=== PATIENT | female | born 1980 | race Caucasian/White ===

== ENCOUNTER 2016-11-27 06:03 | Inpatient (IN) | payer BC, OTHER ==
[2016-11-27] MEDS ORDERED: cefOXitin IV 2 gm in Dextrose 2 GM/50 ML BAG IVPB ONE ×2 (06:23→08:05)
[2016-11-27] MEDS ORDERED: Sodium Citrate/Citric Acid 15 ml Sol PO ONE (06:23)
[2016-11-27 06:25] VITALS: BMI 28.7
--- NOTE | 2016-11-27 06:29 | OBHP ---
Datetime: 11/27/2016 06:25 IP Adm Impression: Term, intrauterine IP Admit Plan: Admit to unit; Initiate Section protocol Admit Comment, IP Provider: at 39weeks came with c/o pelvic pressure and abdominal pain started last night, no vb, lof,+fm. pt has a h/o previous section obhx 1 x , 1 x c/s soch de pmh de med pnv all nkda a/p at 39weeks with abdominal pain/previous section admit to l_dnpo/ivf labs pain karsten cont sara and efm skin abxs anthesia aware dr brand in formed consent taken Pelvic Type - PN: Adequate Extremities - PN: Normal Abdomen - PN: Normal Back - PN: Normal Breast - PN: Normal Lungs - PN: Normal Heart - PN: Normal Thyroid - PN: Normal Neurologic - PN: Normal HEENT - PN: Normal General - PN: Normal FHR - Baseline A Provider: 130 Contraction Comments Provider: irrg Comments, ACOG Physical Exam: gravid,non tender ext no edema,no calf ten IP Hx Assessment: The History has been Reviewed and is Current Vital Signs Provider: Reviewed; Within Normal Limits IP Chief Complaint: Uterine contractions NICHD Variability Prov Fetus A: Moderate 6-25bpm Dilatation, Provider: 2 Effacement, Provider: 60 Station, Provider: -2 Genitourinary Exam: Normal DTRs - PN: Normal
[2016-11-27] MEDS ORDERED: Lactated Ringer's 1,000 ML IV SCH (06:30)
--- NOTE | 2016-11-27 06:32 | OBADHP ---
Datetime: 11/27/2016 06:25 Admit Comment, IP Provider: at 39weeks came with c/o pelvic pressure and abdominal pain started last night, no vb, lof,+fm. pt has a h/o previous section obhx 1 x , 1 x c/s soch de pmh de med pnv all nkda a/p at 39weeks with abdominal pain/previous section admit to l_dnpo/ivf labs pain karsten cont sara and efm skin abxs anthesia aware dr brand in formed consent taken Pelvic Type - PN: Adequate Extremities - PN: Normal Abdomen - PN: Normal Back - PN: Normal Breast - PN: Normal Lungs - PN: Normal Heart - PN: Normal Thyroid - PN: Normal Neurologic - PN: Normal HEENT - PN: Normal General - PN: Normal FHR - Baseline A Provider: 130 Contraction Comments Provider: irrg Comments, ACOG Physical Exam: gravid,non tender ext no edema,no calf ten IP Hx Assessment: The History has been Reviewed and is Current Vital Signs Provider: Reviewed; Within Normal Limits IP Chief Complaint: Uterine contractions NICHD Variability Prov Fetus A: Moderate 6-25bpm Dilatation, Provider: 2 Effacement, Provider: 60 Station, Provider: -2 Genitourinary Exam: Normal DTRs - PN: Normal IP Adm Impression: Term, intrauterine IP Admit Plan: Admit to unit; Initiate Section protocol
[2016-11-27 06:58] LABS: BASO # 0.1 K/uL (0.0-0.2); BASO % 0.6 % (0.0-2.0); EOS # 0.1 K/uL (0.0-0.7); EOS % 1.4 % (0.0-4.0); HEMATOCRIT 38.4 % (34.0-47.0); LYMPH # 2.5 K/uL (1.0-4.3); LYMPH % 25.5 % (20.0-40.0); MEAN CELL VOLUME 85.1 fL (81.0-99.0); MEAN CORPUSCULAR HEMOGLOBIN 28.4 pg (27.0-31.0); MEAN CORPUSCULAR HGB CONC 33.3 g/dL (33.0-37.0); MEAN PLATELET VOLUME 8.3 fL (7.2-11.7); MONO # 0.6 K/uL (0.0-0.8); MONO % 6.2 % (0.0-10.0); RED CELL DISTRIBUTION WIDTH 20.7 % (11.5-14.5); WHITE BLOOD COUNT 9.8 K/uL (4.8-10.8)
[2016-11-27 07:09] LABS: BLOOD UREA NITROGEN 6 mg/dL (7-17); CALCIUM 8.8 mg/dl (8.6-10.4); CARBON DIOXIDE 20 mmol/L (22-30); CHLORIDE 106 mmol/L (98-107); GFR AFRICAN-AMERICAN > 60; GLUCOSE,RANDOM 66 mg/dL (65-105); POTASSIUM 3.7 mmol/L (3.6-5.2); SODIUM 135 mmol/L (132-148)
[2016-11-27 07:22] LABS: RBC URINE 1 /hpf (0-3); URINE BACTERIA RARE (<OCC); URINE BILIRUBIN NEGATIVE (NEGATIVE); URINE BLOOD NEGATIVE (NEGATIVE); URINE COLOR Yellow (YELLOW); URINE GLUCOSE (UA) NORMAL (Normal); URINE KETONE NEGATIVE (NEGATIVE); URINE LEUKOCYTE ESTERASE TRACE Leu/uL (Negative); URINE PROTEIN NEGATIVE (NEGATIVE); URINE UROBILINOGEN NORMAL mg/dL (0.2-1.0); WBC URINE 2 /hpf (0-5)
[2016-11-27] MEDS ORDERED: Sodium Citrate/Citric Acid 15 ml Sol ONE (08:05)
[2016-11-27] MEDS ORDERED: Oxytocin 10 Units/ml Inj ONE (08:21)
[2016-11-27] MEDS ORDERED: Morphine 1 mg/ml preservative-free Inj(Duramorph) ONE (08:34)
[2016-11-27] MEDS ORDERED: Oxycodone/Acetaminophen 5/325 mg Tab PO PRN (08:40)
[2016-11-27] MEDS ORDERED: Midazolam 2 MG/2 ML VIAL ONE (09:35)
[2016-11-27] MEDS ORDERED: ePHEDrine 50 mg/ml Inj ONE (09:35)
[2016-11-27] MEDS ORDERED: DiphenhydrAMINE 50 mg/ml Inj IVP PRN (10:20)
[2016-11-27] MEDS ORDERED: HYDROmorphone 0.5 mg/0.5 ml ISec IVP PRN (10:21)
[2016-11-27] MEDS: Simethicone 80 mg Chewtab PO SCH ×2 (14:02→23:27)
[2016-11-27] MEDS: ceFAZolin IV 1 gm in Dextrose 1 GM/50 ML BAG IVPB SCH ×2 (15:49→23:33)
[2016-11-27 15:55] LABS: RAPID PLASMA REAGIN NONREACTIVE (NONREACTIVE)
[2016-11-28 07:38] LABS: HEMATOCRIT 35.5 % (34.0-47.0); MEAN CELL VOLUME 85.6 fL (81.0-99.0); MEAN CORPUSCULAR HGB CONC 32.7 g/dL (33.0-37.0); MEAN PLATELET VOLUME 7.8 fL (7.2-11.7); RED CELL DISTRIBUTION WIDTH 20.5 % (11.5-14.5); WHITE BLOOD COUNT 11.8 K/uL (4.8-10.8)
[2016-11-28] MEDS: ceFAZolin IV 1 gm in Dextrose 1 GM/50 ML BAG IVPB SCH (07:40)
[2016-11-28] MEDS: Oxycodone/Acetaminophen 5/325 mg Tab PO PRN ×2 (07:48→14:34)
[2016-11-28 08:19] LABS: CHLORIDE 103 mmol/L (98-107); POTASSIUM 3.8 mmol/L (3.6-5.2); SODIUM 132 mmol/L (132-148)
[2016-11-28 08:22] LABS: BLOOD UREA NITROGEN 6 mg/dL (7-17); CARBON DIOXIDE 23 mmol/L (22-30); GFR AFRICAN-AMERICAN > 60; GLUCOSE,RANDOM 65 mg/dL (65-105)
[2016-11-28 08:23] LABS: CALCIUM 8.5 mg/dl (8.6-10.4)
[2016-11-28] MEDS ORDERED: Bisacodyl 5mg EC Tab PO ONE (08:40)
[2016-11-28] MEDS: Simethicone 80 mg Chewtab PO SCH ×5 (09:46→23:13)
--- NOTE | 2016-11-28 11:27 | OBPPN ---
Datetime: 11/28/2016 11:23 PP Pain Prov: Within normal limits PP Nausea Prov: Denies PP Flatus Prov: Yes PP BM Prov: No PP Breasts Prov: Normal PP Heart Prov: Normal PP Lungs Prov: Normal PP Abdomen/Uterus Prov: Normal PP Lochia Prov: Normal PP Vulva/Perineum Prov: Normal PP CVA Tenderness Prov: Normal PP Extremities Prov: Normal PP C/S Incision Prov: Normal PP Progress Prov: Normal PP Comments Phys Exam Prov: GEN NAD AANo x 3 REP: CTAB/l CVS: RRR, +S1/S2 BREAST Non tender, non enrogrbe b/l ABD: soft, NT/ND, +BS, no guaridng, no reboudn tendneres,s no rigidy INCSIN C/D/I healing well V:E miniml lochai non foul slemming EX:T no calf tendnress b/l, negative homans sign PP Impression Prov: Normal progression PP Plan Prov: Continue present management PP Progress Note Prov: pt seen and examiend and reports pian is controlled with medicatoin. pt is am bauting out of bed, voiding, passing flatus, bresat feeding, denies any lighthtenadd, dizzyness, CP, SOB. VSS PE see above GEN NAD AANo x 3 REP: CTAB/l CVS: RRR, +S1/S2 BREAST Non tender, non enrogrbe b/l ABD: soft, NT/ND, +BS, no guaridng, no reboudn tendneres,s no rigidy INCSIN C/D/I healing well V:E miniml lochai non foul slemming EX:T no calf tendnress b/l, negative homans sign A/P s/p RLTCS POD #1 doing well 1. Pain manaagment 2. d/c hauser 3. Activity: encourage ambuation of of bed with adssistance then prn 4. Diet: Advance as tolerated 5. Am labs 6. Encourage breat feedign and incentive spirometner 7. continue current manamgnet IP PP Procedures: None Vital Signs Provider PP: Reviewed; Within Normal Limits
--- NOTE | 2016-11-28 13:08 | PCM.SURG1 ---
Surgeon's Initial Post Op Note - Surgeon's Notes Surgeon: Emma Ruvalcaba MD Tractor Engine Assembler: Dr Rocha Type of Anesthesia: Spinal Pre-Operative Diagnosis: Previous cesearean esction, contractin, in labor Operative Findings: live male , apgars 9, 10 weight of 7lbs 5 ounces, ebl [address] Rocha was surgical instruments inspector and was present for entire case and essential in gaining , retraction, exposure, holding bladder blade, deliverying infant, obtaining hemostasis, closing all layers and was present for entrie case Post-Operative Diagnosis: same as above Operation Performed: Repeat low transverse cesearean section Specimen/Specimens Removed: placenta Estimated Blood Loss: EBL {In ML}: 800 Blood Products Given: N/A Drains Used: No Drains Post-Op Condition: Good Date of Surgery/Procedure: 11/27/16 Time of Surgery/Procedure: 08:00
--- NOTE | 2016-11-28 13:09 | OBDS ---
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 Babies in Womb: 1 Attempted: No Labor Anesthesia: Intrathecal LABOR INFORMATION Reason for Induction: Not Applicable Group B Beta Strep: Positive Group B Beta Strep: Negative Steroids Given: None Reason Steroids Not Administered: Not Applicable MEMBRANES Membranes Rupture Method: Artificial Rupture of Membranes: 11/27/2016 09:08 Length of Rupture (hrs): -0.02 Amniotic Fluid Color: Clear Amniotic Fluid Amount: Moderate Amniotic Fluid Odor: Normal STAGES OF LABOR Stage 3 hrs: 0 Stage 3 min: 1 CSECTION DELIVERY Primary Indication: Repeat Elective Secondary Indication: Repeat Elective CSection Urgency: Elective CSection Incidence: Repeat Labor: N/A Elective: Elective BABY A INFORMATION Infant Delivery Date/Time: 11/27/2016 09:07 Method of Delivery: Born in Route : No : N/A Forceps: N/A Vacuum Extraction: N/A Shoulder Dystocia : No SHOULDER DYSTOCIA BABY A Delivery Date/Time: 11/27/2016 09:07 PRESENTATION/POSITION BABY A Presentation: Cephalic Cephalic Presentation: Vertex Vertex Position: Right Occipital Anterior Breech Presentation: N/A PLACENTA INFORMATION BABY A Placenta Delivery Time : 11/27/2016 09:08 Placenta Method of Delivery: Manual Removal Placenta Status: Delivered SCORES BABY A Heart Rate 1 min: >100 bpm Resp Effort 1 min: Good Cry Reflex Irritability 1 min: Cough or Sneeze or Pulls Away Muscle Tone 1 min: Active Motion Color 1 min: Body [place], Extremities Blue SCORE 1 MIN: 9 Heart Rate 5 min: >100 bpm Resp Effort 5 min: Good Cry Reflex Irritability 5 min: Cough or Sneeze or Pulls Away Muscle Tone 5 min: Active Motion Color 5 min: Completely [place] SCORE 5 MIN: 10 INFANT INFORMATION BABY A Gestational Age at Delivery: 38.5 Gestational Status: Term Infant Outcome : Liveborn Infant Condition : Stable Sex: Male IDENTIFICATION/MEDS BABY A ID Band Number: [id number] ID Band Location: Left Leg; Left Arm Sensor Applied: Yes Sensor Number: [id number] Sensor Location : Cord Clamp Vitamin K Given : Aquamephyton 1 mg IM; Left Thigh Erythromycin Given: Given Both Eyes WEIGHT/LENGTH BABY A Birthweight (gms): 3315 Weight (lb): 7 Weight (oz): 5 Length Inches: 20.00 Infant Length cms: 50.8 CORD INFORMATION BABY A No. Cord Vessels: 3 Nuchal Cord : N/A Nuchal Cord Other: n/a True Knot: n/a Cord pH Baby Arterial: n/a Infant Cord pH Baby Venous: 7.32 Cord Blood Taken: Yes Banking/Donate Info: n/a Suction: Mouth; Nose ASSESSMENT BABY A Complications: None Physical Findings at Delivery: Within Normal Limits Infant Respirations: Appears Normal Energy Sales Broker/ALS Called : No Infant Care By: dr anna and j luisrn Transferred To: Remains with Mother
--- NOTE | 2016-11-28 13:22 | OBDS ---
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 Babies in Womb: 1 Attempted: No Labor Anesthesia: Intrathecal LABOR INFORMATION Reason for Induction: Not Applicable Group B Beta Strep: Positive Steroids Given: None Reason Steroids Not Administered: Not Applicable MEMBRANES Membranes Rupture Method: Artificial Rupture of Membranes: 11/27/2016 09:08 Length of Rupture (hrs): -0.02 Amniotic Fluid Color: Clear Amniotic Fluid Amount: Moderate Amniotic Fluid Odor: Normal STAGES OF LABOR Stage 3 hrs: 0 Stage 3 min: 1 CSECTION DELIVERY Primary Indication: Repeat Elective Secondary Indication: Repeat Elective CSection Urgency: Elective CSection Incidence: Repeat Labor: N/A Elective: Elective BABY A INFORMATION Infant Delivery Date/Time: 11/27/2016 09:07 Method of Delivery: Born in Route : No : N/A Forceps: N/A Vacuum Extraction: N/A Shoulder Dystocia : No SHOULDER DYSTOCIA BABY A Delivery Date/Time: 11/27/2016 09:07 PRESENTATION/POSITION BABY A Presentation: Cephalic Cephalic Presentation: Vertex Vertex Position: Right Occipital Anterior Breech Presentation: N/A PLACENTA INFORMATION BABY A Placenta Delivery Time : 11/27/2016 09:08 Placenta Method of Delivery: Manual Removal Placenta Status: Delivered SCORES BABY A Heart Rate 1 min: >100 bpm Resp Effort 1 min: Good Cry Reflex Irritability 1 min: Cough or Sneeze or Pulls Away Muscle Tone 1 min: Active Motion Color 1 min: Body [place], Extremities Blue SCORE 1 MIN: 9 Heart Rate 5 min: >100 bpm Resp Effort 5 min: Good Cry Reflex Irritability 5 min: Cough or Sneeze or Pulls Away Muscle Tone 5 min: Active Motion Color 5 min: Completely [place] SCORE 5 MIN: 10 INFORMATION BABY A Gestational Age at Delivery: 38.5 Gestational Status: Term Infant Outcome : Liveborn Infant Condition : Stable Infant Sex: Male IDENTIFICATION/MEDS BABY A ID Band Number: [id number] ID Band Location: Left Leg; Left Arm Sensor Applied: Yes Sensor Number: [id number] Sensor Location : Cord Clamp Vitamin K Given : Aquamephyton 1 mg IM; Left Thigh Erythromycin Given: Given Both Eyes WEIGHT/LENGTH BABY A Birthweight (gms): 3315 Infant Weight (lb): 7 Infant Weight (oz): 5 Infant Length Inches: 20.00 Infant Length cms: 50.8 CORD INFORMATION BABY A No. Cord Vessels: 3 Nuchal Cord : N/A Nuchal Cord Other: n/a True Knot: n/a Infant Cord pH Baby Arterial: n/a Infant Cord pH Baby Venous: 7.32 Cord Blood Taken: Yes Banking/Donate Info: n/a Infant Suction: Mouth; Nose ASSESSMENT BABY A Infant Complications: None Physical Findings at Delivery: Within Normal Limits Respirations: Appears Normal Industrial Hygienist/ALS Called : No Infant Care By: dr anna and phyllis dietz Transferred To: Remains with Mother
--- NOTE | 2016-11-29 03:55 | OBPPN ---
Datetime: 11/29/2016 03:50 PP Pain Prov: Within normal limits PP Nausea Prov: Denies PP Flatus Prov: Yes PP BM Prov: Yes PP Breasts Prov: Normal PP Heart Prov: Normal PP Lungs Prov: Normal PP Abdomen/Uterus Prov: Normal PP Lochia Prov: Normal PP Vulva/Perineum Prov: Normal PP CVA Tenderness Prov: Normal PP Extremities Prov: Normal PP C/S Incision Prov: Normal PP Progress Prov: Normal PP Impression Prov: Normal progression PP Plan Prov: Continue present management PP Progress Note Prov: Pt seen and examined and reports pain over incsion controlled with medication . pt deies any fevers, chills, nause, vomiting, CP, SOB, dizzyness. pt with asympomatic tachycardia e arlier. pt reports ambulating, tolerating regular diet. VS see above PE see above A/P s/p RLTCS POD #2 doing well -pain managment -Asympomatic tachycardia: for ekg if elevated -Oxygen saturation -regular diet -continue abodminal binder, incentive spirometer IP PP Procedures: None Datetime: 11/28/2016 11:23 PP Comments Phys Exam Prov: GEN NAD AANo x 3 REP: CTAB/l CVS: RRR, +S1/S2 BREAST Non tender, non enrogrbe b/l ABD: soft, NT/ND, +BS, no guaridng, no reboudn tendneres,s no rigidy Fundus: Firm, clark elvel of umbiucs INCSIN C/D/I healing well V:E miniml lochai non foul slemming EX:T no calf tendnress b/l, negative homans sign
--- NOTE | 2016-11-29 04:40 | OP ---
PROCEDURE DATE: 11/28/2016 PREOPERATIVE DIAGNOSIS: Prior section, protracted labor. POSTOPERATIVE DIAGNOSIS: Prior section, protracted labor. OPERATIVE FINDINGS: Live male infant, Apgars 9 and 10, weight is 7 pounds and 5 ounces. OPERATION PERFORMED: Repeat low transverse section. SURGEON: Dr. Emma Ruvalcaba FINANCIAL INSTITUTION MANAGER: __Dr Wing Rocha__ TYPE OF ANESTHESIA: Spinal. ESTIMATED BLOOD LOSS: 800 mL BLOOD PRODUCTS: None. COMPLICATIONS: No complications. GARMENT FORM ASSEMBLER PRESENT FOR DELIVERY: Dr. Taylor___ was the surgical garment fitter present for entire case and essentially gaining entry, retraction, exposure, holding the bladder blade, obtaining hemostasis and delivering the baby, clsing all layers, and was present for the entire case. SPECIMEN: Placenta. DESCRIPTION OF PROCEDURE: The patient was taken to the operating room where she was given spinal anesthesia. Once it was adequate, she was placed on the operating table in dorsal supine position. The patient was then prepped and draped in usual sterile fashion. A time-out confirmed correct patient and correct procedure. The patient was given preoperative prophylactic antibiotic. Pfannenstiel skin incision was made through the existing previous incision, carried down to the underlying fascia with a Bovie . The fascia was incised in the midline and incision was extended laterally with the Bovie. The superior aspect of the fascial incision was grasped with Allis and Byron clamps and underlying rectus muscle resected off bluntly with the use of Rivera scissors. Attention was then turned to the inferior aspect in the incision in a similar fashion. It was grasped with Allis and Byron clamps and underlying rectus muscle resected off bluntly with the use of Rivera scissors. The rectus was also then bluntly in midline. The peritoneum was identified in the clear space. Incision along the line was spread until there was good visualization. The lower end of the [place] was then inserted, and the lower uterine segment was excised in a transverse fashion. The lower uterine segment incision was extended laterally and bluntly. Amniotic fluid membrane was then ruptured. Clear fluid noted. The surgeon's hand entered the uterine cavity and the infant's head was delivered atraumatically followed by delivery of shoulder and followed by delivery of the body. Both oral and nasal passages of the baby were bulb suctioned. The umbilical cord was clamped and cut and the baby was handed off the awaiting lead handler. The cord blood and cord gases were collected and sent x2. The placenta was then delivered manually. The uterus was exteriorized and cleared off all clots and debris, and the uterine incision was repaired with 0 Vicryl in a running continuous locking fashion. A second layer of the same suture was used to close the uterus in a running imbricating manner. There was normal tubes and ovaries. The uterus was then returned into the abdomen and the paracolic gutters were cleared off clots and debris. There was good hemostasis at the uterine incision site. The peritoneum was reapproximated with 2-0 chromic in a running continuous fashion. The rectus was reapproximated and closed with 2-0 chromic in an interrupted manner, and the fascia was reapproximated and closed with 0 Vicryl in running continuous fashion. Subcutaneous layers closed with 2-0 plain in interrupted manner. The skin was reapproximated and closed with 4-0 Monocryl in a running subcuticular fashion. At the end of the procedure, all needle, sponge, and instrument counts were noted as correct x2. The patient tolerated the procedure well, and was transferred to recovery room in stable condition. Emma Ruvalcaba MD MTDD
[2016-11-29 08:06] VITALS: O2SAT 99
[2016-11-29] MEDS: Simethicone 80 mg Chewtab PO SCH ×4 (09:22→22:50)
--- NOTE | 2016-11-30 07:44 | OBPPN ---
Datetime: 11/30/2016 07:39 PP Pain Prov: Within normal limits PP Nausea Prov: Denies PP Flatus Prov: Yes PP BM Prov: Yes PP Breasts Prov: Normal PP Heart Prov: Normal PP Lungs Prov: Normal PP Abdomen/Uterus Prov: Normal PP Lochia Prov: Normal PP Vulva/Perineum Prov: Normal PP CVA Tenderness Prov: Normal PP Extremities Prov: Normal PP C/S Incision Prov: Normal PP Progress Prov: Normal PP Impression Prov: Normal progression PP Plan Prov: Continue present management; Discharge PP Progress Note Prov: Pt seen and examined and reports pain is controlled with medication. pt denie s any fever, chills, nausea, vomiting, CP, SOB. pt is ambuting, tolerating regular diet, passing flat us, +BM. VSS GEN: NAD, AAo x 3 RESP: CTAB?l CVS: RRR, +S1/S2 BREAST Non tender, non engorged ABD: soft, NT/ND, +BS, no guarding, no reobud tenderness, no rigidity FUNDUS: Firm, at level of umbilucs VE: Minimal lochia, non ful smelling EXT: negative deon's sign A/P s/p RLTCD POD #3 stable for d/c -d;c home -precautisn given -RTO 1 week IP PP Procedures: None Vital Signs Provider PP: Reviewed; Within Normal Limits
--- NOTE | 2016-11-30 07:44 | OBDCSUM ---
Datetime: 11/30/2016 07:41 Discharged to, Provider: Home Follow up at, Provider: Dr Ruvalcaba Disch Instr Activity: Normal activity Disch Instr Diet: Regular Discharge Instructions, Provider: Routine instructions given Discharge Diagnosis, Provider: Term Delivered Discharge Time: 11/30/2016 07:41 Follow up in weeks, Provider: 1 week Disch Referrals: None Contraception discussed, Prov: Yes Disch Activity Restrictions: No sexual activity; Nothing in vagina - [place], tampons, douche Discharge Comment, Provider: If fever, chills, nasue, vomiintg, heavy bleedintg mroe than 2 pads/ ho ur, lightheadness, dizzyness, CP< SOB, severe pain go to ER Contraception after Delivery: Not Planning to Use
[2016-11-30 08:02] VITALS: BP 118/82; PULSE 84; RESP 20; TEMP 98
[2016-11-30] MEDS: Simethicone 80 mg Chewtab PO SCH (10:00)
== END 2016-11-30 11:50 | disposition home or self-care (01) | DRG 766 ==
LOC: C.EROB 06:03 → C.4D 06:24 → C.4M 12:45
PROVIDERS: ADMIT Obstetrics & Gynecology; ATTEND Obstetrics & Gynecology
PROC: 10D00Z1 Extraction of Products of Conception, Low, Open Approach (ICD-10-PCS; principal; 2016-11-28)
DX: O34.211 Maternal care for low transverse scar from previous cesarean delivery (principal); O99.824 Streptococcus B carrier state complicating childbirth; Z3A.38 38 weeks gestation of pregnancy; Z37.0 Single live birth